=== PATIENT | female | born 1975 | race Two or more races ===

== ENCOUNTER 2021-10-21 17:18 | Emergency (ER) | payer MEDICAID, OTHER ==
[~2021-10-21] VITALS: Ht 167.6 cm; Wt 59.0 kg
[2021-10-21] MEDS ORDERED: KETOROLAC TROMETH 30 MG/ML 1ML VIAL IV ONE (18:30)
[2021-10-21 19:36] VITALS: BP 131/79
[2021-10-21] MEDS ORDERED: ONDANSETRON ODT 4 MG TAB PO ONE (20:30)
== END 2021-10-21 20:36 | disposition home or self-care (01) ==
LOC: EDBD 17:18 → ER 17:18
DX: M54.50 Low back pain, unspecified (principal); M25.551 Pain in right hip; M79.605 Pain in left leg; M54.2 Cervicalgia; V43.62XA Car passenger injured in collision with other type car in traffic accident, initial encounter; Y93.89 Activity, other specified; Y92.89 Other specified places as the place of occurrence of the external cause; Y99.8 Other external cause status
CPT/HCPCS: 72040; 72100; 72170; 96374; 99284; J1885; Q0162

== ENCOUNTER 2023-08-09 13:05 | Emergency (ER) | payer MEDICAID ==
[~2023-08-09] VITALS: Ht 154.9 cm; Wt 67.7 kg
[2023-08-09 14:27] VITALS: BP 129/79; PULSE 92; RESP 18; TEMP 98.2; O2SAT 97
[2023-08-09] MEDS ORDERED: HYDROcodone-ACET 10/325MG TAB PO ONE (15:30)
[2023-08-09] MEDS ORDERED: KETOROLAC TROMETH 60MG/2ML VIAL IM ONE (15:30)
[2023-08-09] MEDS ORDERED: IBUP-1455 PO (15:34)
[2023-08-09] MEDS ORDERED: HYDR-4798 PO (15:34)
== END 2023-08-09 15:54 | disposition home or self-care (01) ==
LOC: ER 13:05
DX: G89.29 Other chronic pain (principal); M54.42 Lumbago with sciatica, left side
CPT/HCPCS: 96372; 99283; J1885